=== PATIENT | female | born 1990 ===

== ENCOUNTER 2018-01-08 10:20 | Emergency (ER) | payer SELFPAY ==
--- NOTE | 2018-01-08 10:39 | UC ---
Laceration HPI - HPI Summary HPI Summary: 27 yo female presents with abrasion to left lower leg sustained yesterday. She tells me that she is staying at a hotel and was walking around the room when she scraped her left leg against the bed frame. Sustained a partial thickness abrasion. She cleansed the area, but today noticed some swelling, surrounding redness, and clear drainage and is worried about infection. Says her last tetanus vaccine was on 12/31/17 as she is a new student at [employer]. Denies fever or chills - History Of Current Complaint Chief Complaint: UCLowerExtremity Stated Complaint: ANKLE LACERATION Time Seen by Provider: 01/08/18 10:39 Hx Obtained From: Patient Laceration Location: Calf Onset/Duration: Sudden Onset Severity: Mild Pain Intensity: 3 Pain Scale Used: 0-10 Numeric - Allergies/Home Medications Allergies/Adverse Reactions: Allergies Allergy/AdvReac Type Severity Reaction Status Date / Time No Known Allergies Allergy Verified 01/08/18 10:42 PMH/Surg Hx/FS Hx/Imm Hx - Additional Past Medical History Additional PMH: None Previously Healthy: Yes - Surgical History Surgical History: None - Family History Known Family History: Positive: None - Social History Occupation: Student Lives: Dormitory/Roommates Alcohol Use: None Substance Use Type: None Smoking Status (MU): Never Smoked Tobacco Review of Systems Constitutional: Negative Skin: Other - Abrasion left lower leg Respiratory: Negative Cardiovascular: Negative Neurovascular: Negative Neurological: Negative Psychological: Negative All Other Systems Reviewed And Are Negative: Yes Physical Exam - Summary Physical Exam Summary: GENERAL: NAD. WDWN. No pain distress. SKIN: Left lower leg: on the lateral aspect there is a 2.0cm linear partial thickness abrasions with clotted blood. Mild surrounding erythema and warmth. Mild TTP. Scant clear and yellow drainage able to be expressed. No streaking or bleeding. NECK: Supple. Nontender. No lymphadenopathy. CHEST: No accessory muscle use. Breathing comfortably and in no distress. CV: Pulses intact. Cap refill <2seconds NEURO: Alert. CN II-XII grossly intact. PSYCH: Age appropriate behavior. Triage Information Reviewed: Yes Vital Signs: Vital Signs: Temp Pulse Resp BP Pulse Ox 98.9 F 65 18 99/60 100 01/08/18 10:36 01/08/18 10:36 01/08/18 10:36 01/08/18 10:36 01/08/18 10:36 Vital Signs Reviewed: Yes Laceration Course/Dx - Course/Dx Course Of Treatment: Abrasion left lower leg - Differential Dx - Laceration/Wound Provider Diagnoses: Abrasion left lower leg Discharge - Sign-Out/Discharge Documenting (check all that apply): Patient Departure All imaging exams completed and their final reports reviewed: No Studies - Discharge Plan Condition: Stable Disposition: HOME Prescriptions: Cephalexin CAP* [Keflex CAP*] 500 mg PO BID #14 cap Patient Education Materials: Laceration (DC) Referrals: No Primary Care Phys,NOPCP [Primary Care Provider] - Additional Instructions: If you develop a fever, shortness of breath, chest pain, new or worsening symptoms - please call your PCP or go to the ED. - Billing Disposition and Condition Condition: STABLE Disposition: Home
== END 2018-01-08 11:00 | disposition home or self-care (01) ==
LOC: UCEAST 10:20
DX: S80.812A Abrasion, left lower leg, initial encounter (principal); W22.03XA Walked into furniture, initial encounter; Y92.9 Unspecified place or not applicable
CPT/HCPCS: 99202; G0463